=== PATIENT | male | born 1995 | race Caucasian/White ===

== ENCOUNTER 2016-05-13 10:54 | Emergency (ER) | payer OTHER ==
[2016-05-13 11:03] VITALS: TEMP 98.1
--- NOTE | 2016-05-13 11:21 | CPEKG ---
Heart Rate: 86 RR Interval: 698 P-R Interval: 140 QRSD Interval: 78 QT Interval: 380 QTC Interval: 455 P Manor: 70 QRS Manor: 35 T Wave Manor: 49 EKG Severity - NORMAL ECG - EKG Impression: SINUS RHYTHM Electronically Signed By: Loree Crawford 13-May-2016 15:19:13
[2016-05-13] MEDS ORDERED: NS 1,000 ML IV ONE (11:38)
[2016-05-13 11:55] VITALS: BP 118/76; PULSE 86; RESP 16; O2SAT 96
--- NOTE | 2016-05-13 11:59 | EDPHY ---
H & P Time Seen by Provider: 05/13/16 11:28 HPI/ROS: CHIEF COMPLAINT: my heart hurts HISTORY OF PRESENT ILLNESS: Patient is a 21-year-old male who states that he has been using a lot of drugs recently. He has used cocaine repeatedly. Last dose was 2 nights ago. Last night he used LSD. He has been feeling as though his heart is pounding rapidly. He describes a "heart ache. He currently is without symptoms. He has no shortness of breath. No leg pain or swelling. No fevers or chills. REVIEW OF SYSTEMS: My complete review of systems is negative except as mentioned in the HPI. Past Medical/Surgical History: Crohn's disease Past surgical history: Denies Social history: Patient uses multiple types of drugs including cocaine and LSD. Positive alcohol use. Smoking Status: Heavy smoker Physical Exam: Vitals noted. 144/97, 91, 18, 95% on room air, 36.7 GENERAL: Well-appearing, in no acute distress, alert. HEENT: Eyes normal to inspection, normal pharynx, no signs of dehydration. NECK: No thyromegaly, no lymphadenopathy, supple. RESPIRATORY: Clear to auscultation bilaterally, no rales, rhonchi or wheezing. CVS: Regular rate and rhythm, no rubs, murmurs, or gallops. ABDOMEN: Soft, nontender, nondistended, no organomegaly. BACK: Normal to inspection, no CVA tenderness. SKIN: Normal color, no rash, warm, dry. No pallor. EXTREMITIES: No pedal edema, no calf tenderness, no Homans sign or cords, no joint swelling. NEURO/PSYCH: Alert and oriented x3, normal mood and affect, normal motor sensory exam. Constitutional: Initial Vital Signs Temperature (C) 36.7 C 05/13/16 10:59 Heart Rate 91 05/13/16 10:59 Respiratory Rate 18 05/13/16 10:59 Blood Pressure 144/97 H 05/13/16 10:59 O2 Sat (%) 95 05/13/16 10:59 O2 Delivery Mode Room Air Allergies/Adverse Reactions: No Known Allergies Allergy (Unverified 05/13/16 11:03) Home Medications: Medication Instructions Recorded NK [No Known Home Meds] 05/13/16 Medical Decision Making - Diagnostics EKG Interpretation: EKG shows normal sinus rhythm, normal rate, normal axis, normal intervals. There are no ST or T-wave abnormalities. EKG is normal as interpreted by me. ED Course/Re-evaluation: In the emergency department I discussed possible etiologies with the patient. I answered all his questions. An EKG was ordered. EKG shows normal sinus rhythm, normal rate, normal axis, normal intervals. There are no ST or T-wave abnormalities. EKG is normal as interpreted by me. I discussed the results of the EKG with the patient. I recommended that he stop using illicit drugs. I answered all his questions prior to leaving. He will return with worsening symptoms. Differential Diagnosis: My differential includes but is not limited to ACS, acute OH, dysrhythmia, pulmonary embolus, dissection, aneurysm, drug use - Data Points Medications Given: Discontinued Medications Sodium Chloride (Ns) 1,000 mls @ 0 mls/hr IV ONCE ONE PRN Reason: Wide Open Stop: 05/13/16 11:39 Last Admin: 05/13/16 11:42 Dose: 1,000 mls Departure - Departure Disposition: Home, Routine, Self-Care Clinical Impression: Chest pain Condition: Good Instructions: Chest Pain (ED) Additional Instructions: Return to the emergency department increasing pain or shortness of breath. Stop using cocaine and other illicit drugs. Referrals: [facility] [Outside] - 5-7 days, call for appt.
== END 2016-05-13 12:12 | disposition home or self-care (01) ==
DX: R07.9 Chest pain, unspecified (principal); F17.200 Nicotine dependence, unspecified, uncomplicated